=== PATIENT | female | born 1995 | race Caucasian/White ===

== ENCOUNTER 2021-04-01 14:28 | Emergency (ER) | payer SELFPAY ==
[2021-04-01] MEDS ORDERED: Ondansetron 4 MG Tab.DIS PO ONE (14:29)
[2021-04-01] MEDS ORDERED: LORazepam 0.5 MG Tab PO ONE (14:29)
[2021-04-01] MEDS ORDERED: MVI, Adult with Vitamin K 10 ML, Folic Acid 1 MG, Thiamine 100 MG in Lactated Ringers 1... IV ONE ×4 (17:24)
[2021-04-01] MEDS ORDERED: Ondansetron 4 MG/2 ML SDV IVPUSH ONE (17:25)
[2021-04-01] MEDS ORDERED: LORazepam 2 MG/ML SDV IVPUSH ONE (17:25)
--- NOTE | 2021-04-01 18:14 | EDM.PDOCBH ---
Scribed by Sayda Leon 04/01/21 1814 for Steven Sapp PA <Steven Sapp - Last Filed: 04/01/21 18:33> ED HPI GENERAL MEDICAL PROBLEM - General Chief Complaint: Drug or Alcohol Abuse Stated Complaint: [id number] DRANK 2 NIGHTS AGO, NOT RIGHT SINCE THROWI Time Seen by Provider: 04/01/21 17:20 Source of Information: Reports: Patient, RN, RN Notes Reviewed History Limitations: Reports: No Limitations - History of Present Illness INITIAL COMMENTS - FREE TEXT/NARRATIVE: This 26-year-old female reports to the ED due to possible ETOH withdrawal. The patient reports she has been drinking daily for years, but drank for 24 hours straight on 03/31/21. The patient reports she is now shaky (entire body), nauseated and has diffuse abdominal pain. The patient reports she has not been able to keep anything down. Onset: Gradual Duration: Constant Severity: Severe Improves with: Reports: None Worsens with: Reports: None Associated Symptoms: Reports: No Other Symptoms Abdominal Pain Score (Numeric/FACES): 6 - Related Data Allergies Allergy/AdvReac Type Severity Reaction Status Date / Time No Known Allergies Allergy Verified 04/01/21 15:23 Home Meds: Home Meds . [No Known Home Meds] 04/01/21 [History] Past Medical History HEENT History: Reports: None Cardiovascular History: Reports: None Respiratory History: Reports: None Gastrointestinal History: Reports: None Genitourinary History: Reports: None TUBE HANDLER History: Reports: None Musculoskeletal History: Reports: None Neurological History: Reports: None Psychiatric History: Reports: Addiction, Depression Endocrine/Metabolic History: Reports: None Hematologic History: Reports: None Immunologic History: Reports: None Oncologic (Cancer) History: Reports: None Dermatologic History: Reports: None - Infectious Disease History Infectious Disease History: Reports: None - Past Surgical History Head Surgeries/Procedures: Reports: None Social & Family History - Family History Family Medical History: No Pertinent Family History - Caffeine Use Caffeine Use: Reports: Coffee, Soda - Recreational Drug Use Recreational Drug Use: No ED ROS GENERAL - Review of Systems Review Of Systems: Comprehensive ROS is negative, except as noted in HPI. ED EXAM, BEHAVIORAL HEALTH - Physical Exam Exam: See Below Exam Limited By: No Limitations General Appearance: Anxious Eye Exam: Bilateral Eye: EOMI, Normal Inspection, PERRL Ears: Normal External Exam, Normal Canal, Hearing Grossly Normal, Normal TMs Nose: Normal Inspection, Normal Mucosa, No Blood Throat/Mouth: Normal Inspection, Normal Lips, Normal Teeth, Normal Gums, Normal Oropharynx, Normal Voice, No Airway Compromise Head: Atraumatic, Normocephalic Neck: Normal Inspection, Supple, Non-Tender, Full Range of Motion Respiratory/Chest: No Respiratory Distress, Lungs Clear, Normal Breath Sounds, No Accessory Muscle Use, Chest Non-Tender Cardiovascular: Normal Peripheral Pulses, Regular Rate, Rhythm, No Edema, No Gallop, No JVD, No Murmur, No Rub GI/Abdominal: Normal Bowel Sounds, Soft, Non-Tender, No Organomegaly, No Distention, No Abnormal Bruit, No Mass, Pelvis Stable (Female) Exam: Deferred. No: Cervical Lesions Rectal (Female) Exam: Deferred Back Exam: Normal Inspection, Full Range of Motion, NT Extremities: Normal Inspection, Normal Range of Motion, Non-Tender, Normal Capillary Refill, No Pedal Edema Neurological: Alert, Normal Mood/Affect, CN II-XII Intact, Normal Cognition, Normal Gait, Normal Reflexes, No Motor/Sensory Deficits, Oriented x 3 Psychiatric: Other (quiet and shaky) Skin Exam: Warm, Dry, Intact, Normal color, No rash COURSE, BEHAVIORAL HEALTH COMP - Course Re-Assessment/Re-Exam: The patient was asked if she wanted to go through treatment for alcohol addiction and the patient agreed. [facility] to come to [facility] ED to evaluate this patient for treatment. The patient reports feeling better after the Banana Bag, Zofran and Ativan. The patient was advised that her potassium was low. The patient was advised that an order was placed for IV potassium and additional IV fluids. Departure - Departure Disposition: Home, Self-Care 01 Clinical Impression: Alcohol abuse - Discharge Information Instructions: Alcohol Use Disorder Forms: ED Department Discharge Additional Instructions: zofran 4mg ODT every 4 hours as needed for nausea ativan 0.5mg one every 4 hours as needed for withdrawal symptoms follow up with [facility] tomorrow abstain from alcohol contact [employer] [facility] Sepsis Event Note (ED) - Evaluation Sepsis Screening Result: No Definite Risk <Neva Gonzales - Last Filed: 04/01/21 20:20> COURSE, BEHAVIORAL HEALTH COMP - Course Vital Signs: Last Vital Signs Temp 98.9 F 04/01/21 20:16 Pulse 76 04/01/21 20:16 Resp 18 04/01/21 20:16 BP 98/58 L 04/01/21 20:16 Pulse Ox 97 04/01/21 20:16 Orders, Labs, Meds: Active Orders 24 hr Category Date Time Status DRUG SCREEN URINE BIORAD [URCHEM] Stat Lab 04/01/21 17:37 Ordered HCG QUALITATIVE,URINE [URCHEM] Stat Lab 04/01/21 17:39 Ordered UA RFX JOSE AND CULT IF INDIC [URIN] Urgent Lab 04/01/21 17:37 Ordered Laboratory Tests 04/01/21 04/01/21 04/01/21 Range/Units 17:40 17:45 17:45 WBC 9.1 (5.0-10.0) 10^3/uL RBC 4.24 (4.2-5.4) 10^6/uL Hgb 11.9 L (12.0-16.0) g/dL Hct 34.7 L (37.0-47.0) % MCV 81.8 (80-100) fL MCH 28.1 (27.0-34.0) pg MCHC 34.3 (33.0-35.0) g/dL Plt Count 395 (150-450) 10^3/uL Neut % (Auto) 68.5 (42.2-75.2) % Lymph % (Auto) 21.7 (20.5-50.1) % [place] % (Auto) 9.5 H (2-8) % Eos % (Auto) 0.0 L (1.0-3.0) % Baso % (Auto) 0.3 (0.0-1.0) % Sodium 139 (136-145) mmol/L Potassium 3.1 L (3.5-5.1) mmol/L Chloride 100 (98-107) mmol/L Carbon Dioxide 28 (21-32) mmol/L Anion Gap 14.1 H (7-13) mEq/L BUN 9 (7-18) mg/dL Creatinine 0.65 (0.55-1.02) mg/dL Est Cr Clr Drug Dosing 92.55 mL/min Estimated GFR (MDRD) > 60 BUN/Creatinine Ratio 13.8 (No establ ref range) Glucose 101 H (70-99) mg/dL Calcium 8.4 L (8.5-10.1) mg/dL Total Bilirubin 1.3 H (0.2-1.0) mg/dL AST 32 (15-37) U/L ALT 32 (14-59) U/L Alkaline Phosphatase 52 (46-116) U/L Total Protein 7.1 (6.4-8.2) g/dL Albumin 4.0 (3.4-5.0) g/dL Globulin 3.1 Albumin/Globulin Ratio 1.3 Salicylates (2.8-20(Therapeutic)) mg/dL Ethyl Alcohol < 3 (0) mg/dL SARS-CoV-2 RNA (KAY) Negative (NEGATIVE) 04/01/21 Range/Units 17:45 WBC (5.0-10.0) 10^3/uL RBC (4.2-5.4) 10^6/uL Hgb (12.0-16.0) g/dL Hct (37.0-47.0) % MCV (80-100) fL MCH (27.0-34.0) pg MCHC (33.0-35.0) g/dL Plt Count (150-450) 10^3/uL Neut % (Auto) (42.2-75.2) % Lymph % (Auto) (20.5-50.1) % [place] % (Auto) (2-8) % Eos % (Auto) (1.0-3.0) % Baso % (Auto) (0.0-1.0) % Sodium (136-145) mmol/L Potassium (3.5-5.1) mmol/L Chloride (98-107) mmol/L Carbon Dioxide (21-32) mmol/L Anion Gap (7-13) mEq/L BUN (7-18) mg/dL Creatinine (0.55-1.02) mg/dL Est Cr Clr Drug Dosing mL/min Estimated GFR (MDRD) BUN/Creatinine Ratio (No establ ref range) Glucose (70-99) mg/dL Calcium (8.5-10.1) mg/dL Total Bilirubin (0.2-1.0) mg/dL AST (15-37) U/L ALT (14-59) U/L Alkaline Phosphatase (46-116) U/L Total Protein (6.4-8.2) g/dL Albumin (3.4-5.0) g/dL Globulin Albumin/Globulin Ratio Salicylates < 2.8 L (2.8-20(Therapeutic)) mg/dL Ethyl Alcohol (0) mg/dL SARS-CoV-2 RNA (KAY) (NEGATIVE) Medications Discontinued Medications Generic Name Dose Route Start Last Admin Trade Name Freq PRN Reason Stop Dose Admin Multivitamins/Minerals 10 ml/ 1,011.2 mls @ 999 mls/hr 04/01/21 17:24 04/01/21 17:46 Folic Acid 1 mg/ Thiamine HCl IV 04/01/21 18:24 999 mls/hr 100 mg/ Lactated Ringer's ONETIME ONE Administration Potassium Chloride 10 meq/ 100 mls @ 100 mls/hr 04/01/21 18:24 04/01/21 19:21 Premix IV 04/01/21 19:23 100 mls/hr ONETIME ONE Administration Sodium Chloride 1,000 mls @ 999 mls/hr 04/01/21 18:24 04/01/21 18:33 Normal Saline IV 04/01/21 19:24 999 mls/hr .BOLUS ONE Administration Lorazepam 1 mg 04/01/21 17:25 04/01/21 17:54 Lorazepam 2 Mg/Ml Sdv IVPUSH 04/01/21 17:26 1 mg ONETIME ONE Administration Ondansetron HCl 4 mg 04/01/21 17:25 04/01/21 17:54 Ondansetron 4 Mg/2 Ml Sdv IVPUSH 04/01/21 17:26 4 mg ONETIME ONE Administration Departure - Departure Time of Disposition: 20:18 Condition: Fair - Discharge Information *PRESCRIPTION DRUG MONITORING PROGRAM REVIEWED*: No *COPY OF PRESCRIPTION DRUG MONITORING REPORT IN PATIENT LAINEY: No Sepsis Event Note (ED) - Focused Exam Vital Signs: Vital Signs Temp Pulse Pulse Resp BP BP Pulse Ox 04/01/21 20:16 98.9 F 76 18 98/58 L 97 04/01/21 15:17 153/112 H 04/01/21 15:13 97.6 F 101 H 16 95 I have read and agree with the documentation that has been completed regarding this visit. By signing this record, I attest that the documentation was completed in my physical presence and is an accurate record of the encounter.
[2021-04-01 18:22] LABS: ANION GAP 14.1 mEq/L (7-13); CHLORIDE,CL 100 mmol/L (98-107); SODIUM,NA 139 mmol/L (136-145)
[2021-04-01] MEDS ORDERED: Sodium Chloride 0.9% 1,000 ML IV ONE (18:24)
[2021-04-01] MEDS ORDERED: Potassium Chloride 10 MEQ in Premix Bag 1 BAG IV ONE (18:24)
[2021-04-01] MEDS ORDERED: LORazepam 0.5 MG Tab ONE (20:23)
[2021-04-01] MEDS ORDERED: Ondansetron 4 MG Tab.DIS ONE (20:23)
== END 2021-04-01 20:31 | disposition home or self-care (01) ==
LOC: DL.ED 14:28
DX: F10.10 Alcohol abuse, uncomplicated (principal); Z20.822 Contact with and (suspected) exposure to COVID-19
CPT/HCPCS: 36415; 80053; 80179; 80307; 85025; 87635; 96365; 96367; 96375; 99284; A9270; J2060; J2405; J3411; J3480; J7030; J7120; J3490; U0002